=== PATIENT | female | born 1985 ===

== ENCOUNTER → 2018-08-22 21:44 | Outpatient (REF) | payer OTHER, MEDICAID, SELFPAY ==
[2018-08-24 14:57] LABS: Dehydroepiandrosterone Sulfate 104 mcg/dL (18-391)
[2018-08-24 20:20] LABS: ANA Screen, IFA Positive (Negative)
== END ==
LOC: LAB 21:44
PROVIDERS: Visit Provider Naturopath
DX: N92.4 Excessive bleeding in the premenopausal period (principal); G47.9 Sleep disorder, unspecified; R53.83 Other fatigue
CPT/HCPCS: 36415; 82533; 82627; 82784; 84155; 86038; 86334

== ENCOUNTER → 2018-11-15 21:31 | Outpatient (REF) | payer OTHER, MEDICAID, SELFPAY ==
[2018-11-15 21:35] LABS: RBC Urine None Seen (0-5/HPF)
[2018-11-15 23:09] LABS: Add Manual Diff / Slide Review NO; Basophils Absolute Auto 0 /uL (0-100); Basophils Percent Auto 0.4 % (0-2); Eosinophils Absolute Auto 300 /uL (0-450); Hematocrit 44.9 % (36-46); Hemoglobin 14.8 g/dL (12.0-16.0); Lymphocytes Absolute Auto 1900 /uL (1100-4500); Lymphocytes Percent Auto 29.6 % (25-40); Mean Corpuscular Hemoglobin 28.3 PG (26-34); Mean Corpuscular Volume 85.9 fL (80-100); Monocytes Absolute Auto 500 /uL (0-900); Monocytes Percent Auto 8.6 % (3-14); Neutrophils Absolute Auto 3600 /uL (1500-7000); Neutrophils Percent Auto 57.4 % (50-75); Platelet Count 279 X10^3/uL (150-400); Red Blood Cell Count 5.22 X10^6/uL (4.0-5.2); White Blood Cell Count 6.3 X10^3/uL (4.5-11.0)
[2018-11-15 23:29] LABS: Appearance Urine UA CLEAR; Bilirubin Urine UA NEGATIVE (NEGATIVE); Color Urine UA YELLOW; Glucose Urine UA NEGATIVE (Negative); Ketones Urine UA NEGATIVE (NEGATIVE); Leukocyte Esterase Urine UA 3+ (NEGATIVE); Nitrite Urine UA NEGATIVE (Negative); Occult Blood Urine UA TRACE-LYSED (Negative); Protein Urine UA NEGATIVE (Negative); Specific Gravity Urine UA 1.015 (1.000-1.035); Urobilinogen Urine UA 0.2 E.U./dL (0.2)
[2018-11-15 23:48] LABS: Bacteria Urine Few (2-10); Culture Indicated Urine Specimen Cultured; Squamous Epithelial Cell Urine 0-1 /HPF; WBC Urine 5-10/HPF (0-5/HPF)
[2018-11-16 00:08] LABS: Ferritin 7.6 ng/mL (6.27-137)
[2018-11-16 02:08] LABS: Iron 60 ug/dL (37-170)
[2018-11-16 02:25] LABS: Free T3, Triiodothyronine Free 3.42 pg/mL (2.77-5.27); T4 Total Thyroxine 7.96 ug/dL (5.5-11.0)
[2018-11-16 02:38] LABS: Thyroid Stimulating Hormone 0.55 uIU/mL (0.47-4.68)
[2018-11-16 09:36] LABS: HEMOLYSIS < 15 (0-50); Percent Iron Saturation 15 % (15-50); Total Iron Binding Capacity 401 ug/dL (265-497); Transferrin 306 mg/dL (206-381)
== END ==
LOC: LAB 21:31
PROVIDERS: Visit Provider Naturopath
DX: D64.9 Anemia, unspecified (principal); N94.6 Dysmenorrhea, unspecified; R35.0 Frequency of micturition; R53.83 Other fatigue
CPT/HCPCS: 36415; 81001; 82728; 83540; 83550; 84436; 84439; 84443; 84481; 85025; 87086